=== PATIENT | male | born 1970 | race Caucasian/White ===

== ENCOUNTER → 2016-07-17 | Outpatient (CLI) | payer OTHER ==
[~2016-07-17] MED LIST: ATEN50TA9 PO; ATOR40TA PO; BUPR150T3 PO; BUPR1TAB17 PO; COUM1TAB17 PO; COUM7.5T PO; DULO1CAP PO; DULO1CAP2 PO; FLOM5CAP PO; LAMO10TA PO; LEVO125T3 PO; METO5TAB2 PO; MONT10TA2 PO; POTA10CA PO; RANI1TAB6 PO; SYNT137T7 PO; VYVA60CA PO; WELLTAB40 PO
== END ==
LOC: M SMT 13:49
PROVIDERS: ATTEND Nurse Practitioner Women's Health
DX: Z12.5 Encounter for screening for malignant neoplasm of prostate (principal)

== ENCOUNTER 2017-06-18 12:48 | Inpatient (IN) | payer MEDICAID, OTHER ==
[2017-06-18 13:06] LABS: BEDSIDE GLUCOSE 104 MG/DL (70-105)
[2017-06-18 13:56] LABS: HEMATOCRIT 45.7 % (42.0-52.0); HEMOGLOBIN 15.1 g/dl (13.5-17.5); MEAN CORPUSCULAR VOLUME 84.8 fl (80.0-96.0); PLATELET COUNT, AUTOMATED 228 10^3/uL (150-450); RED BLOOD COUNT 5.39 10^6/uL (4.30-6.10); RED CELL DISTRIBUTION WIDTH 14.6 % (11.5-14.5); WHITE BLOOD COUNT 5.9 10^3/uL (4.0-10.0)
[2017-06-18 14:07] LABS: INR 2.51; PARTIAL THROMBOPLASTIN TIME 35.6 SECONDS (26.8-37.9); PROTHROMBIN TIME 28.1 SECONDS (12.4-14.5)
[2017-06-18 14:24] LABS: AMPHETAMINES LEVEL URINE NEGATIVE (NEGATIVE); BARBITURATES URINE NEGATIVE (NEGATIVE); BENZODIAZEPINES URINE NEGATIVE (NEGATIVE); CANNABINOIDS URINE NEGATIVE (NEGATIVE); COCAINE METABOLITE URINE NEGATIVE (NEGATIVE); METHADONE URINE NEGATIVE (NEGATIVE); OPIATES URINE NEGATIVE (NEGATIVE); PHENCYCLIDINE URINE NEGATIVE (NEGATIVE)
[2017-06-18 14:36] LABS: ALBUMIN 4.4 GM/DL (3.2-5.2); ALBUMIN/GLOBULIN RATIO 1.33 (1.00-1.93); ALKALINE PHOSPHATASE 88 U/L (45-117); ALT/SGPT 39 U/L (12-78); ANION GAP 7 MEQ/L (8-16); AST/SGOT 24 U/L (7-37); BILIRUBIN,DIRECT 0.1 MG/DL (0.0-0.2); BILIRUBIN,TOTAL 0.5 MG/DL (0.2-1.0); BLOOD UREA NITROGEN 19 MG/DL (7-18); CALCIUM LEVEL 9.4 MG/DL (8.5-10.1); CARBON DIOXIDE LEVEL 29 MEQ/L (21-32); CHLORIDE LEVEL 102 MEQ/L (98-107); ETHYL ALCOHOL (ETHANOL) < 0.003 % (0.000-0.010); GLOMERULAR FILTRATION RATE > 60.0 (>60); GLUCOSE, FASTING 98 MG/DL (70-100); POTASSIUM SERUM 3.6 MEQ/L (3.5-5.1); SALICYLATE LEVEL < 1.7 MG/DL (5.0-30.0); SODIUM LEVEL 138 MEQ/L (136-145); TOTAL PROTEIN 7.7 GM/DL (6.4-8.2)
[2017-06-18 14:37] LABS: ACETAMINOPHEN LEVEL < 2.0 UG/ML (10.0-30.0)
[2017-06-18] MEDS ORDERED: MOM 30ML SUSPENSION UDC PO (17:45)
[2017-06-18] MEDS ORDERED: MAALOX 30 ML SUSP *UDC PO (17:45)
[2017-06-18] MEDS ORDERED: ACETAMINOPHEN TAB 650MG DOSE (2X325MG) PO (17:45)
[2017-06-18] MEDS ORDERED: WARFARIN SOD 5 MG TAB PO (20:00)
[2017-06-18 20:54] LABS: INR 2.51; PROTHROMBIN TIME 28.1 SECONDS (12.4-14.5)
[2017-06-18] MEDS: METOCLOPRAMIDE 5 MG TAB PO (22:52)
[2017-06-19] MEDS: traZODone 50 MG TAB PO ×2 (03:08→22:01)
[2017-06-19] MEDS: LEVOTHYROXINE 150MCG TABLET (0.15MG) PO (07:26)
[2017-06-19] MEDS: TAMSULOSIN 0.4 MG CAP PO (08:08)
[2017-06-19] MEDS: ATORVASTATIN 20 MG TAB PO (08:08)
[2017-06-19] MEDS: MONTELUKAST 10 MG TAB PO (08:08)
[2017-06-19] MEDS: CHLORTHALIDONE 25 MG TAB PO (08:08)
[2017-06-19] MEDS: METOCLOPRAMIDE 5 MG TAB PO ×4 (08:09→22:01)
[2017-06-19] MEDS: ATENOLOL 50 MG TAB PO (08:09)
[2017-06-19] MEDS: FAMOTIDINE 20 MG TAB PO ×2 (09:50→22:01)
[2017-06-19 10:11] LABS: PROTHROMBIN TIME 27.1 SECONDS (12.4-14.5)
[2017-06-19] MEDS: buPROPion **XL** TABLET 150MG (WELLBUTRIN XL) PO (12:17)
[2017-06-19] MEDS: ESCITALOPRAM OXALATE 10 MG TAB (LEXAPRO) PO (12:17)
[2017-06-19] MEDS ORDERED: PILL CRUSHER/CUTTER 1 EACH XX (13:30)
[2017-06-19] MEDS: lamoTRIgine 100MG TAB PO ×2 (13:44→22:01)
[2017-06-19] MEDS: WARFARIN SOD 7.5 MG TAB PO (16:57)
[2017-06-20] MEDS: LEVOTHYROXINE 150MCG TABLET (0.15MG) PO (06:12)
[2017-06-20] MEDS: METOCLOPRAMIDE 5 MG TAB PO (06:34)
[2017-06-20 07:00] LABS: INR 2.25; PROTHROMBIN TIME 25.7 SECONDS (12.4-14.5)
[2017-06-20] MEDS: ESCITALOPRAM OXALATE 10 MG TAB (LEXAPRO) PO (09:31)
[2017-06-20] MEDS: FAMOTIDINE 20 MG TAB PO (09:31)
[2017-06-20] MEDS: TAMSULOSIN 0.4 MG CAP PO (09:31)
[2017-06-20] MEDS: lamoTRIgine 100MG TAB PO (09:32)
[2017-06-20] MEDS: ATORVASTATIN 20 MG TAB PO (09:32)
[2017-06-20] MEDS: MONTELUKAST 10 MG TAB PO (09:32)
[2017-06-20] MEDS: CHLORTHALIDONE 25 MG TAB PO (09:32)
[2017-06-20] MEDS: ATENOLOL 50 MG TAB PO (09:32)
[2017-06-20] MEDS: buPROPion **XL** TABLET 150MG (WELLBUTRIN XL) PO (09:32)
[2017-06-20] MEDS ORDERED: WARFARIN SOD 5 MG TAB PO (17:00)
== END 2017-06-20 11:40 | disposition home or self-care (01) | DRG 885 ==
LOC: M ED 12:48 → M ED INP 17:32 → M PSY 18:20
PROVIDERS: Psychiatry & Neurology Psychiatry
DX: F32.2 Major depressive disorder, single episode, severe without psychotic features (principal); R45.851 Suicidal ideations; Z68.41 Body mass index [BMI] 40.0-44.9, adult; F41.1 Generalized anxiety disorder; I10 Essential (primary) hypertension; E78.5 Hyperlipidemia, unspecified; N40.0 Benign prostatic hyperplasia without lower urinary tract symptoms; E03.9 Hypothyroidism, unspecified; K21.9 Gastro-esophageal reflux disease without esophagitis; E66.9 Obesity, unspecified; I25.10 Atherosclerotic heart disease of native coronary artery without angina pectoris; J45.909 Unspecified asthma, uncomplicated; Z86.73 Personal history of transient ischemic attack (TIA), and cerebral infarction without residual deficits; I25.2 Old myocardial infarction; Z95.9 Presence of cardiac and vascular implant and graft, unspecified; Z79.899 Other long term (current) drug therapy

== ENCOUNTER → 2017-07-15 | Outpatient (CLI) | payer OTHER ==
[2017-07-15 19:37] LABS: PSA SCREENING 0.05 NG/ML (< 4.0)
== END ==
LOC: M SMT 11:09
DX: Z12.5 Encounter for screening for malignant neoplasm of prostate (principal)
CPT/HCPCS: 84153

== ENCOUNTER 2023-11-20 20:09 | Emergency (ER) | payer MEDICARE, OTHER ==
[~2023-11-20] VITALS: Ht 177.8 cm; Wt 154.6 kg
[~2023-11-20 20:09] MED LIST changes: +ATOR1TAB21 PO; -ATOR40TA PO; +ATOR40TA75 PO; +BUPR-71 PO; +BUPR150T12 PO; -BUPR150T3 PO; -BUPR1TAB17 PO; +BUPR1TAB53 PO; +BUSP15TA47 PO; -COUM7.5T PO; +COUM7.5T6 PO; -DULO1CAP PO; -DULO1CAP2 PO; +DULO1CAP4 PO; +DULO1CAP5 PO; +ESCI10TA16 PO; +EZET10TA21 PO; +FLOM0.4C39 PO; -FLOM5CAP PO; +HYDR-3363 PO; +LAMI1TAB8 PO; +LAMO100T80 PO; -LAMO10TA PO; -LEVO125T3 PO; +LEVO125T4 PO; -MONT10TA2 PO; +MONT10TA97 PO; +POTA-136 PO; -POTA10CA PO; +RANI-397 PO; -RANI1TAB6 PO; +SYNT150T PO; +WARF-21 PO; +WARF-23 PO
[2023-11-20 20:23] VITALS: BP 154/77; TEMP 97.5; O2SAT 95
[2023-11-20 20:47] LABS: HEMATOCRIT 45.7 % (42.0-52.0); HEMOGLOBIN 14.6 g/dl (13.5-17.5); MEAN CORPUSCULAR HEMOGLOBIN 28.6 pg (27.0-33.0); MEAN CORPUSCULAR HGB CONC 31.9 g/dl (32.0-36.5); MEAN CORPUSCULAR VOLUME 89.6 fl (80.0-96.0); PLATELET COUNT, AUTOMATED 290 10^3/uL (150-450); WHITE BLOOD COUNT 9.1 10^3/uL (4.0-10.0)
[2023-11-20 21:00] LABS: INR 1.05; PROTHROMBIN TIME 13.4 SECONDS (12.5-14.5)
[2023-11-20 21:11] LABS: ETHYL ALCOHOL (ETHANOL) < 0.003 % (0.000-0.010)
[2023-11-20 21:13] LABS: ALBUMIN 4.1 G/DL (3.2-5.2); ALKALINE PHOSPHATASE 108 U/L (46-116); ALT/SGPT 21 U/L (7.0-40); AST/SGOT 13 U/L (<34); BILIRUBIN,DIRECT 0.1 MG/DL (<0.4); BILIRUBIN,TOTAL 0.4 MG/DL (0.3-1.2); BLOOD UREA NITROGEN 20 MG/DL (9-23); CALCIUM LEVEL 9.9 MG/DL (8.5-10.1); CARBON DIOXIDE LEVEL 25 MMOL/L (20-31); CHLORIDE LEVEL 109 MMOL/L (98-107); CREATININE FOR GFR 1.02 MG/DL (0.70-1.30); GLOMERULAR FILTRATION RATE > 60.0 (>56); GLUCOSE, FASTING 100 MG/DL (60-100); POTASSIUM SERUM 4.5 MMOL/L (3.5-5.1); SALICYLATE LEVEL < 3.0 MG/DL (<30); SODIUM LEVEL 140 MMOL/L (136-145); TOTAL PROTEIN 7.5 G/DL (5.7-8.2)
[2023-11-20 21:16] LABS: THYROID STIMULATING HORMONE 9.377 uIU/ML (0.55-4.78)
[2023-11-20 21:23] LABS: AMPHETAMINES LEVEL URINE NEGATIVE (NEGATIVE)
[2023-11-20 21:24] LABS: BARBITURATES URINE NEGATIVE (NEGATIVE); BENZODIAZEPINES URINE NEGATIVE (NEGATIVE); CANNABINOIDS URINE NEGATIVE (NEGATIVE); COCAINE METABOLITE URINE NEGATIVE (NEGATIVE); METHADONE URINE NEGATIVE (NEGATIVE); OPIATES URINE NEGATIVE (NEGATIVE); PHENCYCLIDINE URINE NEGATIVE (NEGATIVE)
[2023-11-20] MEDS ORDERED: TOPI25TA10 PO (22:17)
[2023-11-20] MEDS ORDERED: ATOR80TA59 PO (22:17)
[2023-11-20] MEDS ORDERED: HYDR1TAB33 PO (22:17)
[2023-11-20] MEDS ORDERED: METF10004 PO (22:17)
[2023-11-20] MEDS ORDERED: POTA-298 PO (22:17)
[2023-11-20] MEDS ORDERED: DONE5TAB82 PO (22:17)
[2023-11-20] MEDS ORDERED: FURO40TA2 PO (22:17)
[2023-11-20] MEDS ORDERED: ASPI81CH48 PO (22:17)
[2023-11-20] MEDS ORDERED: ELIQ5TAB PO (22:17)
[2023-11-20] MEDS ORDERED: TRAZ-257 PO (22:17)
[2023-11-20] MEDS ORDERED: FINA5TAB2 PO (22:17)
[2023-11-20] MEDS ORDERED: OXYB-54 PO (22:17)
[2023-11-20] MEDS ORDERED: HOME MED LIST COMPLETE! XX SCH (22:20)
== END 2023-11-20 22:14 | disposition home or self-care (01) ==
LOC: M ED 20:09
DX: F41.0 Panic disorder [episodic paroxysmal anxiety] (principal); I10 Essential (primary) hypertension; F32.A Depression, unspecified; N40.0 Benign prostatic hyperplasia without lower urinary tract symptoms; E78.5 Hyperlipidemia, unspecified; Z79.01 Long term (current) use of anticoagulants; Z79.4 Long term (current) use of insulin; Z79.899 Other long term (current) drug therapy; Z79.82 Long term (current) use of aspirin